=== PATIENT | female | born 1975 | race African-American/Black ===

== ENCOUNTER 2020-04-11 13:59 | Outpatient (CLI) | payer OTHER, SELFPAY ==
--- NOTE | ~2020-04-11 | MM_ITS ---
EXAMINATION: MM screening [facility] BI w mariela HISTORY: Screening TECHNIQUE: Craniocaudal and mediolateral oblique 3-D tomosynthesis images were obtained and synthetic 2-D images were generated. CAD analysis was submitted and interpreted. COMPARISON: Comparison to multiple prior studies sequentially, with oldest reviewed study dated . 03/11 BREAST PARENCHYMAL COMPOSITION: There are scattered areas of fibroglandular density. FINDINGS: There is no evidence of suspicious mass, calcification, or architectural distortion to sugg est malignancy in either breast. There has been no suspicious interval change. IMPRESSION: 1. No mammographic evidence of malignancy. 2. Recommend routine screening mammography in one year. BI-RADS Category 1: Negative Reviewed, dictated and finalized at location A.
== END 2020-04-11 14:00 | disposition home or self-care (01) ==
LOC: ANHIMG 14:02
PROVIDERS: PCP Internal Medicine; Visit Provider Obstetrics & Gynecology
DX: Z12.31 Encounter for screening mammogram for malignant neoplasm of breast (principal)
CPT/HCPCS: 77063; 77067

== ENCOUNTER 2020-04-15 00:18 | Emergency (ER) | payer OTHER, SELFPAY ==
[2020-04-15 00:21] VITALS: BP 182/98; PULSE 88; RESP 16; TEMP 36.2; O2SAT 100
--- NOTE | 2020-04-15 00:56 | ED.HA ---
HPI - Headache General Chief Complaint: Headache Stated Complaint: denise Time Seen by Provider: 04/15/20 00:29 History of Present Illness HPI Narrative: Patient is a 44-year-old female who presents ER with right-sided headache. Began the evening of 04/12/2020. Intermittent sharp on the right side. Improved with tramadol. No focal weakness in arm or leg. No numbness or tingling. No change in vision or hearing. No trauma. Patient reports she did injure herself at work recently and pinched nerve. She works at [employer]. She has been caring some stress from this. She is also been taking meloxicam. Related Data Home Medications Medication Instructions Recorded Confirmed ciclopirox 1 ml TOPICAL WEEKLY 08/12/19 08/12/19 fluocinolone and shower cap 0.01 % TOPICAL WEEKLY 08/12/19 08/12/19 pantoprazole 40 mg PO BID 08/12/19 08/12/19 valacyclovir 500 mg PO DAILY PRN 08/12/19 08/12/19 Allergies Allergy/AdvReac Type Severity Reaction Status Date / Time Penicillins Allergy Unknown HIVES Unverified 08/15/19 09:23 Review of Systems Constitutional: Constitutional: Denies chills, Denies fever(s) and Denies weakness Eyes: Eyes: Denies change in vision Neurologic: Reports headache(s), Denies focal weakness and Denies numbness PMFSH Past Medical History Medical History (Updated 04/15/20 @ 01:00 by Chris Hsu MD) Obesity Surgical History Surgical History (Updated 04/15/20 @ 00:58 by Chris Hsu MD) H/O rotator cuff surgery Exam Narrative: Exam Narrative: GENERAL: Well-appearing, well-nourished, and in no acute distress. HEAD: Normocephalic, atraumatic. ENT: Mucous membranes moist. Neck: No midline tenderness. Normal range of motion. Mild left trapezius muscle tenderness mild tenderness on the right side of the paraspinal musculature near the insertion point of the occiput. CHEST: Clear to auscultation. No respiratory distress. HEART: Regular rate and rhythm. Normal peripheral pulses.. EXTREMITIES: Normal range of motion bilateral upper extremities. No edema. NEURO: No focal deficits. Alert and oriented x3. Course Course Emergency Course: Discharge with muscle relaxer to help in patient's discomfort. Seems to be muscular type headache. Also recommend heat. Vital Signs Vital signs: Vital Signs Temperature 97.1 F L 04/15/20 00:21 Pulse Rate 88 04/15/20 00:21 Respiratory Rate 16 04/15/20 00:21 Blood Pressure 182/98 H 04/15/20 00:21 Pulse Oximetry 100 04/15/20 00:21 Temperature 97.1 F L 04/15/20 00:21 Pulse Rate 88 04/15/20 00:21 Respiratory Rate 16 04/15/20 00:21 Blood Pressure 182/98 H 04/15/20 00:21 Pulse Oximetry 100 04/15/20 00:21 Discharge Plan Discharge Clinical Impression: Tension headache Patient Disposition: Home, Self-Care Condition: Stable Instructions: Tension Headache (ED) Additional Instructions: Return the ER if you lose consciousness, you have focal weakness or numbness in an arm or leg, you have loss of vision. Prescriptions: New cyclobenzaprine 10 mg tablet 10 mg PO TID PRN (Reason: muscle spasm) Qty: 20 RF: 0 No Action valacyclovir 500 mg tablet 500 mg PO DAILY PRN (Reason: Outbreak) RF: 0 pantoprazole 40 mg tablet,delayed release (DR/EC) 40 mg PO BID RF: 0 ciclopirox 1 % shampoo 1 ml TOPICAL WEEKLY RF: 0 fluocinolone and shower cap 0.01 % oil 0.01 % TOPICAL WEEKLY RF: 0 Follow-up/Referrals: Ezequiel,Eloise Mosley MD [Primary Care Provider] - 1 Week
[2020-04-15 01:12] VITALS: BP 174/113; PULSE 81; RESP 16; O2SAT 97
== END 2020-04-15 01:14 | disposition home or self-care (01) ==
PROVIDERS: Emergency Provider Emergency Medicine; PCP Internal Medicine
DX: G44.209 Tension-type headache, unspecified, not intractable (principal); E66.9 Obesity, unspecified
CPT/HCPCS: 99283

== ENCOUNTER 2020-06-17 04:45 | Emergency (ER) | payer OTHER, SELFPAY ==
[2020-06-17] VITALS (14 sets, daily range): BP systolic 121–147; BP diastolic 75–95; PULSE 73–99; RESP 13–20; TEMP 36; O2SAT 92–100
--- NOTE | ~2020-06-17 | XR_ITS ---
EXAMINATION: XR chest 2V DATE: 06/17/2020 06:17 INDICATION: Palpitations. TECHNIQUE: Frontal and lateral views of the chest were obtained. COMPARISON: None. FINDINGS: The chest demonstrates clear lungs without pneumonia, pleural effusion, or pneumothorax. Th e heart size is normal. IMPRESSION: 1. No acute cardiopulmonary disease. Reviewed, dictated and finalized at location A. 

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
--- NOTE | 2020-06-17 04:56 | ECG_ITS ---
Measurements Intervals [place] Rate: 84 P: 63 RI: 163 QRS: 15 QRSD: 89 T: 28 QT: 348 QTc: 413 Interpretive Statements SINUS RHYTHM WITH SINUS ARRHYTHMIA NORMAL ECG Electronically Signed On 06-17-2020 7:59:18 [employer] by Ashok Whalen D.O.
[2020-06-17 05:21] LABS: Basophils Percent Auto 0.5 % (0.2-1.2); Eosinophils Absolute Auto 0.4 K/mm3 (0-0.3); Eosinophils Percent Auto 5.5 % (0-4.4); Hematocrit 37.3 % (37.0-47.0); Hemoglobin 12.8 g/dL (12.0-15.0); Immature Granulocyte Absolute 0.02 K/mm3 (0.00-0.031); Immature Granulocyte Percent A 0.3 % (0-0.5); Lymphocytes Absolute Auto 2.45 K/mm3 (0.9-3.2); Lymphocytes Percent Auto 32.3 % (18.3-44.2); Mean Corpuscular HGB Conc 34.3 g/dl (32-36); Mean Corpuscular Hemoglobin 29.6 pg (26-34); Mean Corpuscular Volume 86.1 fl (80-100); Mean Platelet Volume 9.4 fl (7.4-10.4); Monocytes Absolute Auto 0.4 K/mm3 (0.1-0.6); Monocytes Percent Auto 4.6 % (2.6-8.5); Neutrophils Absolute Auto 4.3 K/mm3 (1.3-6.7); Neutrophils Percent Auto 56.8 % (45.5-73.1); Platelet Count Result 276 k/mm3 (150-375); Red Blood Count 4.33 M/mm3 (4.2-5.4); Red Cell Distribution Width 12.7 % (11.5-14.5); White Blood Count 7.6 K/mm3 (4.5-10.0)
[2020-06-17] MEDS: SODIUM CHLORIDE 0.9% IV 500 ML 999 ML IV CONT (05:23)
[2020-06-17 05:35] LABS: INR 0.9; Prothrombin Time 13.1 Seconds (11.1-14.7)
[2020-06-17 05:36] LABS: Partial Thromboplastin Time 29.9 SECONDS (22.3-36.8)
[2020-06-17 05:38] LABS: D Dimer 0.42 ug/mL (<0.48)
[2020-06-17 05:43] LABS: Add Urine Microscopic? NO; Appearance Urine Clear (Clear); Bilirubin Urine Negative (Negative); Blood Urine Negative (Negative); Color Urine Yellow (Yellow); Glucose Urine UA Negative (Negative); Ketones Urine Negative (Negative); Leukocyte Esterase Ur Negative LEU/UL (Negative); Mucus Urine Rare /lpf; Nitrate Urine Negative (Negative); Protein Urine Negative (Negative); RBC Urine 0-2 /hpf (0-2); Specific Grav Ur 1.015 (1.001-1.035); Squamous Epithelial Cell Urine Few /hpf (Few); Urobilinogen Urine Negative mg/dL (<2.0); WBC Urine 0-3 /hpf
[2020-06-17 06:05] LABS: Troponin I < 0.012 ng/mL (0.000-0.034)
[2020-06-17 06:41] LABS: Anion Gap 11 mmol/L (8-16); Blood Urea Nitrogen 11 mg/dL (7-17); Calcium 9.2 mg/dL (8.4-10.2); Carbon Dioxide 25 mmol/L (22-30); Chloride 105 mmol/L (98-107); Estimated CRCL calculation 114 ml/min; Estimated Glomerular Filt Rate > 60; Glucose 145 mg/dL (65-105); Potassium 3.7 mmol/L (3.4-5.0); Sodium 141 mmol/L (137-145)
== END 2020-06-17 06:59 | disposition home or self-care (01) ==
PROVIDERS: Emergency Provider Emergency Medicine; PCP Internal Medicine
DX: R00.2 Palpitations (principal); M54.5 Low back pain; G89.29 Other chronic pain; R03.0 Elevated blood-pressure reading, without diagnosis of hypertension; E66.9 Obesity, unspecified; Z68.41 Body mass index [BMI] 40.0-44.9, adult
CPT/HCPCS: 36415; 71046; 80048; 81003; 84484; 85025; 85380; 85610; 85730; 93005; 96360; 99284; J7040

== ENCOUNTER 2020-07-18 11:21 | Outpatient (CLI) | payer OTHER, SELFPAY ==
[2020-07-18 11:46] LABS: Basophils Percent Auto 0.4 % (0.2-1.2); Eosinophils Absolute Auto 0.4 K/mm3 (0-0.3); Eosinophils Percent Auto 5.6 % (0-4.4); Hematocrit 39.8 % (37.0-47.0); Hemoglobin 13.5 g/dL (12.0-15.0); Immature Granulocyte Absolute 0.02 K/mm3 (0.00-0.031); Immature Granulocyte Percent A 0.3 % (0-0.5); Lymphocytes Absolute Auto 1.97 K/mm3 (0.9-3.2); Lymphocytes Percent Auto 27.5 % (18.3-44.2); Mean Corpuscular HGB Conc 33.9 g/dl (32-36); Mean Corpuscular Hemoglobin 29.7 pg (26-34); Mean Corpuscular Volume 87.5 fl (80-100); Mean Platelet Volume 9.2 fl (7.4-10.4); Monocytes Absolute Auto 0.6 K/mm3 (0.1-0.6); Monocytes Percent Auto 7.8 % (2.6-8.5); Neutrophils Absolute Auto 4.2 K/mm3 (1.3-6.7); Neutrophils Percent Auto 58.4 % (45.5-73.1); Platelet Count Result 282 k/mm3 (150-375); Red Blood Count 4.55 M/mm3 (4.2-5.4); Red Cell Distribution Width 12.8 % (11.5-14.5); White Blood Count 7.2 K/mm3 (4.5-10.0)
[2020-07-18 11:56] LABS: INR 0.9; Prothrombin Time 12.8 Seconds (11.1-14.7)
[2020-07-18 11:57] LABS: Partial Thromboplastin Time 29.2 SECONDS (22.3-36.8)
[2020-07-18 11:58] LABS: Hemoglobin A1C 5.8 % (<5.7)
[2020-07-18 11:59] LABS: D Dimer 0.28 ug/mL (<0.48)
[2020-07-18 12:01] LABS: Alanine Aminotransferase 10 U/L (4-35); Albumin Level 4.2 g/dL (3.5-5.1); Alkaline Phosphatase 70 U/L (38-126); Anion Gap 7 mmol/L (8-16); Aspartate Amino Transferase 25 U/L (14-36); Bilirubin,Total 0.4 mg/dL (0.2-1.3); Blood Urea Nitrogen 11 mg/dL (7-17); Calcium 9.8 mg/dL (8.4-10.2); Carbon Dioxide 28 mmol/L (22-30); Chloride 102 mmol/L (98-107); Estimated Glomerular Filt Rate > 60; Glucose 116 mg/dL (65-105); Potassium 4.2 mmol/L (3.4-5.0); Sodium 137 mmol/L (137-145)
[2020-07-18 12:17] LABS: Erythrocyte Sedimentation Rate 35 mm/hr (0-20)
[2020-07-18 12:39] LABS: HIV 1/2 Ab P24 Ag Result Negative (Negative)
[2020-07-18 13:11] LABS: Hepatitis B Surface Antigen Negative (Negative)
[2020-07-18 13:17] LABS: HAV RESULT Negative (Negative); Hepatitis B Core IgM Result Negative (Negative)
[2020-07-18 13:29] LABS: Hepatitis C Virus Antibody Negative (Negative)
== END 2020-07-18 11:22 | disposition home or self-care (01) ==
PROVIDERS: PCP Internal Medicine; Visit Provider Internal Medicine
DX: M79.606 Pain in leg, unspecified (principal); E66.9 Obesity, unspecified; E55.9 Vitamin D deficiency, unspecified
CPT/HCPCS: 36415; 80053; 82306; 83036; 84443; 85025; 85380; 85610; 85652; 85730; 86703; 86705; 86709; 86803; 87340; G0432

== ENCOUNTER 2021-04-27 11:28 | Outpatient (CLI) | payer OTHER, SELFPAY ==
--- NOTE | ~2021-04-27 | MM_ITS ---
EXAMINATION: MM screening [facility] BI w mariela HISTORY: Screening mammogram TECHNIQUE: Craniocaudal and mediolateral oblique 3-D tomosynthesis images were obtained and synthetic 2-D images were generated. CAD analysis was submitted and interpreted. COMPARISON: 04/11/2020, 11/30/2018, 08/2017 bilateral digital screening mammogram examinations BREAST PARENCHYMAL COMPOSITION: There are scattered areas of fibroglandular density. FINDINGS: There is no evidence of suspicious mass, calcification, or architectural distortion to sugg est malignancy in either breast. There has been no suspicious interval change. IMPRESSION: 1. No mammographic evidence of malignancy. 2. Recommend routine screening mammography in one year. BI-RADS Category 1: Negative Reviewed, dictated and finalized at location A.
== END 2021-04-27 11:29 | disposition home or self-care (01) ==
PROVIDERS: PCP Internal Medicine; Visit Provider Obstetrics & Gynecology
DX: Z12.31 Encounter for screening mammogram for malignant neoplasm of breast (principal)
CPT/HCPCS: 77063; 77067

== ENCOUNTER 2022-03-25 17:52 | Emergency (ER) | payer OTHER, SELFPAY ==
--- NOTE | ~2022-03-25 | XR_ITS ---
EXAMINATION: XR chest 2V DATE: 03/25/2022 20:14 INDICATION: Cough. TECHNIQUE: Frontal and lateral views of the chest were obtained. COMPARISON: Chest 2 views 06/17/2020 FINDINGS: The chest demonstrates clear lungs without pneumonia, pleural effusion, or pneumothorax. Th e heart size is normal. IMPRESSION: 1. No acute cardiopulmonary disease. Reviewed, dictated and finalized at location A.
[2022-03-25 18:00] VITALS: BP 170/83; PULSE 94; RESP 20; TEMP 36.8; O2SAT 100
[2022-03-25 19:45] VITALS: PULSE 76; RESP 18
[2022-03-25] MEDS: ALBUTEROL SULFATE NEB 2.5 MG/3 ML INH 5 MG INHALATION (19:48)
[2022-03-25] MEDS: IPRATROPIUM BR 0.02% INH SOLN 0.5 MG/2.5 ML VIAL INHALATION (19:49)
[2022-03-25 19:53] VITALS: PULSE 85; RESP 18
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
[2022-03-25 21:24] VITALS: BP 145/90; PULSE 66; RESP 17; TEMP 36.6; O2SAT 100
== END 2022-03-25 21:25 | disposition home or self-care (01) ==
PROVIDERS: Emergency Provider Emergency Medicine; PCP Internal Medicine
DX: J68.0 Bronchitis and pneumonitis due to chemicals, gases, fumes and vapors (principal); E66.9 Obesity, unspecified; Z68.41 Body mass index [BMI] 40.0-44.9, adult
CPT/HCPCS: 71046; 94640; 99283

== ENCOUNTER 2022-04-30 08:40 | Outpatient (CLI) | payer OTHER, SELFPAY ==
--- NOTE | ~2022-04-30 | MM_ITS ---
EXAMINATION: MM screening [facility] BI w mariela HISTORY: Screening mammogram TECHNIQUE: Craniocaudal and mediolateral oblique 3-D tomosynthesis images were obtained and synthetic 2-D images were generated. CAD analysis was submitted and interpreted. COMPARISON: 04/27/2021, 04/11/2020, 11/30/2018 BREAST PARENCHYMAL COMPOSITION: There are scattered areas of fibroglandular density. FINDINGS: There is no suspicious mass, calcification, or architectural distortion to suggest malignan cy in either breast. There has been no suspicious interval change. IMPRESSION: 1. No mammographic evidence of malignancy. 2. Recommend routine screening mammography in one year. BI-RADS Category 1: Negative Reviewed, dictated and finalized at location D.
== END 2022-04-30 08:41 | disposition home or self-care (01) ==
PROVIDERS: PCP Internal Medicine; Visit Provider Nurse Practitioner Family
DX: Z12.31 Encounter for screening mammogram for malignant neoplasm of breast (principal)
CPT/HCPCS: 77063; 77067

== ENCOUNTER 2023-06-19 01:05 | Day surgery (SDC) | payer OTHER, SELFPAY ==
[2023-06-08 14:43] VITALS: BMI 35.2
--- NOTE | 2023-06-17 12:18 | SUR.PREOP ---
Patient called regarding upcoming procedure. Reviewed preop instructions, appointment times, and procedure prep.
--- NOTE | 2023-06-18 14:04 | PM.HPGS ---
History of Present Illness History of Present Illness Consent: Risks, benefits, and alternatives have been discussed and questions answered. Patient agrees to proceed with procedure. Chief complaint: neoplasm screening Narrative: Malgorzata Bennett is a 48 year old female Who was referred for colon cancer screening because of her age. Review of Systems Review of Systems: All systems reviewed & are unremarkable except as noted in HPI and below PMFSH Past Medical History Medical History Obesity Scoliosis Surgical History Surgical History H/O rotator cuff surgery Social History Social History Smoking status: Never smoker Alcohol intake: never Substance use: never Substance use type: does not use Living arrangements: with family Gender identity (if verbalized by the patient): Female Spiritual care concerns: No Meds Home Medications and Allergies Home Medications Medication Instructions Recorded Confirmed Type pantoprazole 40 mg tablet,delayed 40 mg PO PRN PRN Acid Reflux 08/12/19 06/08/23 History release famotidine 40 mg tablet 40 mg PO PRN PRN Acid Reflux 06/08/23 06/08/23 History multivitamin 1 tablet PO DAILY 06/08/23 06/08/23 History semaglutide (weight loss) 1.7 1.7 mg subcut WEEKLY 06/08/23 06/19/23 History mg/0.75 mL subcutaneous pen injector (Wegovy) Allergies Allergy/AdvReac Type Severity Reaction Status Date / Time Penicillins Allergy Unknown HIVES Verified 06/19/23 12:06 Exam Resp: Auscultation: clear to auscultation bilaterally Cardio: Rate: regular rate Rhythm: regular rhythm GI: GI Palp: Yes Soft to palpation and No Tenderness to palpation present (GI) Assessment and Plan Assessment and plan (1) Colon cancer screening: Code(s): Z12.11 - Encounter for screening for malignant neoplasm of colon Status: Acute Assessment and Plan: Colonoscopy with possible biopsy or polypectomy or cautery or injection of substances.
[2023-06-19 12:07] VITALS: BP 121/84; PULSE 98; RESP 18; TEMP 36.3; O2SAT 100
[2023-06-19] MEDS: LACTATED RINGERS 1,000 ML 150 ML IV CONT (12:17)
--- NOTE | 2023-06-19 12:41 | P.PNAN_ITS ---
Anes - Eval Pre Procedure Procedure: Operation Date: 06/19/23 13:30 Proposed Procedures p Screening Colonoscopy - Elijah Soto MD Date/Time: 06/19/23 12:41 Pre Op Diagnosis: neoplasm screening Patient Data Age: 48 Gender: F Height: 1.7 m Weight: 100 kg Last Vital Signs Temp 36.3 C L 06/19/23 12:07 Pulse 98 06/19/23 12:07 Resp 18 06/19/23 12:07 BP 121/84 06/19/23 12:07 Pulse Ox 100 06/19/23 12:07 O2 Del Method Room Air 06/19/23 12:07 Allergies Allergy/AdvReac Type Severity Reaction Status Date / Time Penicillins Allergy Unknown HIVES Verified 06/19/23 12:06 Home Medications Medication Instructions Recorded Confirmed Type pantoprazole 40 mg tablet,delayed 40 mg PO PRN PRN Acid Reflux 08/12/19 06/08/23 History release famotidine 40 mg tablet 40 mg PO PRN PRN Acid Reflux 06/08/23 06/08/23 History multivitamin 1 tablet PO DAILY 06/08/23 06/08/23 History semaglutide (weight loss) 1.7 1.7 mg subcut WEEKLY 06/08/23 06/19/23 History mg/0.75 mL subcutaneous pen injector (Wegovy) Patient hx anesthesia problems: none Family hx anesthesia problems: none Results Review: All pre-operative results and documents have been reviewed as part of the pre- operative evaluation. PMFSH Past Medical History Medical History Obesity Scoliosis Surgical History Surgical History H/O rotator cuff surgery Social History Social History Smoking status: Never smoker Alcohol intake: never Substance use: never Substance use type: does not use Living arrangements: with family Gender identity (if verbalized by the patient): Female Spiritual care concerns: No Exam Day of Procedure 06/19/23 12:41
--- NOTE | 2023-06-19 12:45 | P.PNAN_ITS ---
Anes - Initial Pre Proc Eval Procedure: Operation Date: 06/19/23 13:30 Proposed Procedures p Screening Colonoscopy - Elijah Soto MD Date/Time: 06/19/23 12:45 Surgeon: Elijah Soto MD Pre Op Diagnosis: neoplasm screening Patient Data Age: 48 Gender: F Height: 1.7 m Weight: 100 kg Last Vital Signs Temp 97.4 F L 06/19/23 12:07 Pulse 98 06/19/23 12:07 Resp 18 06/19/23 12:07 BP 121/84 06/19/23 12:07 Pulse Ox 100 06/19/23 12:07 O2 Del Method Room Air 06/19/23 12:07 Allergies Allergy/AdvReac Type Severity Reaction Status Date / Time Penicillins Allergy Unknown HIVES Verified 06/19/23 12:06 Home Medications Medication Instructions Recorded Confirmed Type pantoprazole 40 mg tablet,delayed 40 mg PO PRN PRN Acid Reflux 08/12/19 06/08/23 History release famotidine 40 mg tablet 40 mg PO PRN PRN Acid Reflux 06/08/23 06/08/23 History multivitamin 1 tablet PO DAILY 06/08/23 06/08/23 History semaglutide (weight loss) 1.7 1.7 mg subcut WEEKLY 06/08/23 06/19/23 History mg/0.75 mL subcutaneous pen injector (Wegovy) Patient hx anesthesia problems: none Family hx anesthesia problems: none Results Review: All pre-operative results and documents have been reviewed as part of the pre- operative evaluation. PMFSH Past Medical History Medical History Obesity Scoliosis Surgical History Surgical History H/O rotator cuff surgery Social History Social History Smoking status: Never smoker Alcohol intake: never Substance use: never Substance use type: does not use Living arrangements: with family Gender identity (if verbalized by the patient): Female Spiritual care concerns: No Anes - Eval Final PreProcedure Day of Procedure 06/19/23 12:45 Patient weight: obese Heart: regular rate and rhythm Lungs: clear to auscultation Airway: Mallampati scale class II Neurological: alert and oriented Last oral intake: >/= 8 hours ASA classification: II Emergent: no Anesthetic plan: proceed Anesthesia type and monitoring: general GIVS and standard monitoring Results Review: All pre-operative results and documents have been reviewed as part of the pre- operative evaluation. Informed Consent: The patient's anesthetic plan and its attendant risks and benefits were discussed with the patient/family/POA. Questions were solicited and answers provided to the satisfaction of the patient/family/POA.
[2023-06-19 13:06] VITALS: BP 115/46; PULSE 111; RESP 19; O2SAT 99
[2023-06-19 13:16] VITALS: BP 119/74; PULSE 107; RESP 15; O2SAT 100
[2023-06-19 13:24] VITALS: BP 119/72; PULSE 89; RESP 16; O2SAT 100
== END 2023-06-19 13:51 | disposition home or self-care (01) ==
PROVIDERS: PCP Internal Medicine; Visit Provider Internal Medicine Gastroenterology
PROC: 0DJD8ZZ Inspection of Lower Intestinal Tract, Via Natural or Artificial Opening Endoscopic (ICD-10-PCS; CPT 45378; principal; 2023-06-19 13:30)
DX: Z12.11 Encounter for screening for malignant neoplasm of colon (principal); K64.8 Other hemorrhoids; Z80.0 Family history of malignant neoplasm of digestive organs; Z79.85 Long-term (current) use of injectable non-insulin antidiabetic drugs; E66.9 Obesity, unspecified; Z68.34 Body mass index [BMI] 34.0-34.9, adult
CPT/HCPCS: 45378; J2704; J7120

== ENCOUNTER 2023-11-03 08:21 | Outpatient (CLI) | payer OTHER, SELFPAY ==
--- NOTE | ~2023-11-03 | MM_ITS ---
EXAMINATION: MM screening [facility] BI w mariela HISTORY: Screening mammogram TECHNIQUE: Craniocaudal and mediolateral oblique 3-D tomosynthesis images were obtained and synthetic 2-D images were generated. CAD analysis was submitted and interpreted. COMPARISON: 04/30/2022, 04/27/2021 bilateral screening mammogram examinations BREAST PARENCHYMAL COMPOSITION: There are scattered areas of fibroglandular density. FINDINGS: There is no evidence of suspicious mass, calcification, or architectural distortion to sugg est malignancy in either breast. There has been no suspicious interval change. IMPRESSION: 1. No mammographic evidence of malignancy. 2. Recommend routine screening mammography in one year. BI-RADS Category 1: Negative Reviewed, dictated and finalized at location A.
== END 2023-11-03 08:22 | disposition home or self-care (01) ==
PROVIDERS: PCP Internal Medicine; Visit Provider Obstetrics & Gynecology
DX: Z12.31 Encounter for screening mammogram for malignant neoplasm of breast (principal)
CPT/HCPCS: 77063; 77067